=== PATIENT | female | born 1995 | race Caucasian/White ===

== ENCOUNTER 2016-12-13 20:41 | Emergency (ER) | payer OTHER ==
[2016-12-13 20:52] VITALS: BP 110/62
[2016-12-13] MEDS ORDERED: DOXYcycline CAP(*) 100 MG PO ONE (21:20)
--- NOTE | 2016-12-13 21:39 | UC ---
Skin Complaint HPI - HPI Summary HPI Summary: Pt presents with c/o sudden onset of tender, itchy "sore" on left facial cheek. Pt reports that her boyfriend has similar skin condition. - History of Current Complaint Chief Complaint: UCSkin Time Seen by Provider: 12/13/16 20:56 Stated Complaint: SKIN COMPLAINT Hx Obtained From: Patient Hx Last Menstrual Period: 11/24/16 ?: No Onset/Duration: Sudden Onset Skin Exposure Onset/Duration: Days Ago Timing: Constant Onset Severity: Mild Pain Intensity: 0 Pain Scale Used: 0-10 Numeric Location: Discrete, Face - left side facial cheek Character: Pruritus, Redness, Painful Aggravating Factor(s): Touch Alleviating Factor(s): Unknown Associated Signs & Symptoms: Positive: Drainage, Tenderness - Allergy/Home Medications Allergies/Adverse Reactions: Allergies Allergy/AdvReac Type Severity Reaction Status Date / Time No Known Allergies Allergy Verified 12/13/16 20:52 Home Medications: Home Medications Norethindrone Acetate-Ethinyl [Lo Loestrin Fe 1 mg-10 Mcg / 10 Mcg] 1 tab PO DAILY 12/13/16 [History Confirmed 12/13/16] Review of Systems Constitutional: Negative Skin: Other - sore, Eyes: Negative ENT: Negative Respiratory: Negative Cardiovascular: Negative Gastrointestinal: Negative Genitourinary: Negative Motor: Negative Neurovascular: Negative Musculoskeletal: Negative Neurological: Negative Psychological: Negative Is Patient Immunocompromised?: No All Other Systems Reviewed And Are Negative: Yes PMH/Surg Hx/FS Hx/Imm Hx Previously Healthy: Yes - Surgical History Surgical History: Yes Surgery Procedure, Year, and Place: gall bladder 02/07 - Family History Known Family History: Positive: Cardiac Disease - Social History Occupation: Student - [employer] Lives: Dormitory/Roommates Alcohol Use: Occasionally Substance Use Type: None Smoking Status (MU): Never Smoked Tobacco Have You Smoked in the Last Year: No Physical Exam Triage Information Reviewed: Yes Appearance: Well-Appearing Vital Signs: Initial Vital Signs Temp 99.3 F 12/13/16 20:47 Pulse 79 12/13/16 20:47 Resp 16 12/13/16 20:47 BP 110/62 12/13/16 20:47 Pulse Ox 100 12/13/16 20:47 Vital Signs Reviewed: Yes Eye Exam: Normal ENT Exam: Normal Neck exam: Normal Respiratory Exam: Normal Cardiovascular Exam: Normal Abdominal Exam: Normal Musculoskeletal Exam: Normal Neurological Exam: Normal Psychological Exam: Normal Skin Exam: Other - small, pencil eraser size erytheam circular area, c/o tenderness and previous blister that erupted. Course/Dx - Differential Diagnoses - Skin Complaint Differential Diagnoses: Cellulitis, Impetigo - Diagnoses Provider Diagnoses: impetigo Discharge - Discharge Plan Condition: Stable Disposition: HOME Prescriptions: DOXYcycline CAP(*) [DOXYcycline 100MG CAP(*)] 100 mg PO Q12H #6 cap Mupirocin 2% OINT* [Bactroban 2 % Oint*] 1 applic TOPICAL BID #1 tube Patient Education Materials: Impetigo (ED) Referrals: [facility] [Outside]
== END 2016-12-13 21:27 | disposition home or self-care (01) ==
LOC: UCCORT 20:41
DX: L01.00 Impetigo, unspecified (principal)
CPT/HCPCS: 99202; A9270-GY; G0463